=== PATIENT | male | born 1995 | race Hispanic/Latino ===

== ENCOUNTER 2020-05-26 19:34 | Inpatient (IN) | payer SELFPAY ==
[~2020-05-26 19:34] MED LIST: Dexamethasone 20 MG/5 ML VIAL ONE; Glycopyrrolate 0.2 MG/ML 5 ML SYRINGE ONE; Iopamidol-370 76% 500 ML 1 ML ONE; Ketorolac Tromethamine 30 MG/ML VIAL ONE; Lidocaine 1% PF 5 ML VIAL ONE; Ondansetron PF 4 MG/2 ML Vial ONE; PHENYLEPHRINE-NS 100 MCG/ML 10 ML SYRINGE ONE; PROPOFOL 200 MG/20 ML VIAL ONE; Rocuronium Bromide 10 MG/ML (10ML VIAL) ONE; ePHEDrine 50 MG/ML VIAL ONE
[2020-05-26] MEDS ORDERED: Ketamine 50 MG/ML (10ML VIAL) ONE (19:44)
[2020-05-26] MEDS ORDERED: metroNIDAZOLE 500 MG/100 ML BAG ONE (20:04)
[2020-05-26] MEDS ORDERED: Vancomycin 1 GM/200 ML BAG ONE (20:04)
[2020-05-26] MEDS ORDERED: Boostrix 0.5 ML (Tdap) VIAL ONE (20:04)
[2020-05-26 20:48] LABS: Lactic Acid 3.3 mmol/L (0.5-2.2)
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
[2020-05-26] MEDS ORDERED: HYDROmorphone 0.5 MG/0.5 ML SYRINGE ONE ×2 (20:49→21:03)
[2020-05-26 20:53] LABS: ALT (SGPT) 919 U/L (8-55); AST (SGOT) 801 U/L (5-34); Albumin 3.7 g/dL (3.5-5.0); Alcohol Less than 10 mg/dL (Less than 10); Alkaline Phosphatase 75 U/L (40-110); Anion Gap 15 mmol/L (10-20); BUN (Urea Nitrogen) 14 mg/dL (8.9-20.6); Bilirubin, Total 0.8 mg/dL (0.2-1.2); Calc. Creatinine Clearance 0 mL/min (70-130); Calcium 7.7 mg/dL (7.8-10.44); Carbon Dioxide 23 mmol/L (22-29); Chloride 105 mmol/L (98-107); Globulin 2.3 g/dL (2.4-3.5); Glucose 133 mg/dL (70-105); Magnesium 1.9 mg/dL (1.6-2.6); Phosphorus 2.9 mg/dL (2.3-4.7); Potassium 4.4 mmol/L (3.5-5.1); Sodium 139 mmol/L (136-145)
[2020-05-26 20:54] LABS: INR-International Normal Ratio 1.2; Prothrombin Time 15.3 sec (12.0-14.7)
[2020-05-26 20:55] LABS: Acetaminophen Less than 6.0 mcg/mL (10.0-30.0); Alcohol Less than 10 mg/dL (Less than 10); Salicylate Less than 8.0 mg/dL (15.0-30.0)
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
[2020-05-26] MEDS ORDERED: Sodium Phosphate 15 MMOL in Sodium Chloride 0.9% 250 ML 250 ML IVPB SCH (21:00)
[2020-05-26] MEDS ORDERED: Magnesium 2 GM/50 ML 2 GM in Premix Bag 1 BAG IVPB SCH (21:00)
[2020-05-26] MEDS ORDERED: Fentanyl 100 MCG/2 ML VIAL ONE (21:03)
[2020-05-26 21:21] LABS: Band 15 % (5-11); Hemoglobin 13.9 g/dL (14.0-18.0); Lymphocytes 20 % (21-51); MDiff Complete? YES; Mean Corpuscular HGB CONC 34.9 g/dL (32.0-36.0); Mean Corpuscular Hemoglobin 30.5 pg (27.0-31.0); Mean Corpuscular Volume 87.4 fL (78.0-98.0); Mean Platelet Volume 6.9 fL (7.4-10.4); Monocytes 2 % (0-10); Neutrophil 63 % (42-75); Platelet Count 267 thou/uL (130-400); RBC Distribution Width 11.2 % (11.5-14.5); Red Blood Cell (RBC) Count 4.55 mill/uL (4.70-6.10)
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
[2020-05-26] MEDS ORDERED: hydrALAZINE 20 MG/ML VIAL SLOW IVP PRN (21:44)
[2020-05-26] MEDS ORDERED: Ondansetron PF 4 MG/2 ML Vial IVP PRN (21:44)
[2020-05-26] MEDS ORDERED: Morphine 4 MG/ML VIAL SLOW IVP PRN (21:44)
[2020-05-26] MEDS ORDERED: Dextrose 5% in Water 1,000 ML IV PRN (21:44)
[2020-05-26] MEDS ORDERED: Dextrose 50% Abboject 50 ML SYRINGE SLOW IVP PRN (21:44)
[2020-05-26] MEDS ORDERED: Ondansetron ODT 4 MG TAB PO PRN (21:44)
[2020-05-26] MEDS ORDERED: Morphine 2 MG/ML VIAL SLOW IVP PRN (21:44)
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
[2020-05-26] MEDS ORDERED: Sodium Chloride 0.9% 1,000 ML IV SCH (22:00)
[2020-05-26 22:28] LABS: SARS-CoV-2 NAA Rapid Test Not Detected (NotDetected)
[2020-05-26] MEDS ORDERED: Communication Order-Pharmacy FS SCH (23:45)
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
--- NOTE | 2020-05-27 00:10 | RAD ---
Exam: XR Ankle Rt 2 View HISTORY: Incision and drainage right ankle COMPARISON: 05/26/2020 FINDINGS/IMPRESSION: 2 intraoperative fluoroscopic images of the right ankle are submitted for interpretation. There is im proved alignment at the tibiotalar joint on provided fluoroscopic images. Radiopaque densities adjacent to the lateral malleolus are not visualized and may be related to recent postoperative harvey e or removal of overlying artifact. Subcutaneous emphysema is seen about right ankle. Correlation with intraoperative findings is recommended. Fluoroscopy: Time-24.9 seconds Dose 0.86 mGy.
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
[2020-05-27] MEDS: cefTRIAXone\\ROCEPHIN 2 GM in Sodium Chloride 0.9% 100 ML IVPB SCH (00:50)
[2020-05-27 01:07] LABS: Bacteria/HPF None Seen HPF (None Seen); Bilirubin Negative (Negative); Blood, Urine 3+ (Negative); Clarity Clear (Clear); Glucose, Urine (Dipstick) 30 mg/dL (Negative); Ketone, Urine Negative (Negative); Leukocyte Negative Leu/uL (Negative); Nitrite Negative (Negative); Protein, Urine (Dipstick) 100 mg/dL (Neg-Trace); RBC/HPF Greater than 50 HPF (0-3); Specific Gravity, Urine 1.042 (1.002-1.036); Squamous Epithelial 0-3 HPF (0-3); Urobilinogen Normal mg/dL (Less than 2)
[2020-05-27 01:09] LABS: Urine Culture Reflex Yes Yes
[2020-05-27 01:10] LABS: Amphetamine Not Detected (NotDetected); Barbiturates Screen Not Detected (NotDetected); Benzodiazepine Screen Not Detected (NotDetected); Cocaine Metabolite Screen Not Detected (NotDetected); Medtox Control Line Valid? VALID (VALID); Medtox Reader # READER 4; Methadone Not Detected (NotDetected); Methamphetamine Not Detected (NotDetected); Opiate Screen Not Detected (NotDetected); Oxycodone Screen Not Detected (NotDetected); Phencyclidine (PCP) Not Detected (NotDetected); THC/Cannabinoid Screen Not Detected (NotDetected); Tricyclic Screen Not Detected (NotDetected)
[2020-05-27 02:23] VITALS: BMI 32.0
[2020-05-27 02:53] LABS: ALT (SGPT) 1274 U/L (8-55); AST (SGOT) 1207 U/L (5-34); Albumin 3.5 g/dL (3.5-5.0); Alkaline Phosphatase 73 U/L (40-110); Anion Gap 16 mmol/L (10-20); BUN (Urea Nitrogen) 15 mg/dL (8.9-20.6); Bilirubin, Total 0.6 mg/dL (0.2-1.2); Calc. Creatinine Clearance 143 mL/min (70-130); Calcium 7.7 mg/dL (7.8-10.44); Carbon Dioxide 20 mmol/L (22-29); Chloride 107 mmol/L (98-107); Globulin 2.2 g/dL (2.4-3.5); Glucose 140 mg/dL (70-105); Lactic Acid 5.3 mmol/L (0.5-2.2); Protein, Total 5.7 g/dL (6.0-8.3); Sodium 139 mmol/L (136-145)
[2020-05-27 03:07] LABS: CK (CPK) 4379 U/L (30-200)
[2020-05-27 03:19] LABS: Band 24 % (5-11); Hemoglobin 12.8 g/dL (14.0-18.0); Lymphocytes 7 % (21-51); MDiff Complete? YES; Mean Corpuscular HGB CONC 35.7 g/dL (32.0-36.0); Mean Corpuscular Hemoglobin 31.5 pg (27.0-31.0); Mean Corpuscular Volume 88.3 fL (78.0-98.0); Mean Platelet Volume 4.3 fL (7.4-10.4); Monocytes 2 % (0-10); Neutrophil 67 % (42-75); Platelet Count 175 thou/uL (130-400); Platelet Morphology Comment Appears Adequate; RBC Distribution Width 11.4 % (11.5-14.5); Red Blood Cell (RBC) Count 4.05 mill/uL (4.70-6.10); White Blood Cell (WBC) Count 21.4 thou/uL (4.8-10.8)
[2020-05-27] MEDS ORDERED: Sodium Chloride 0.9% 1,000 ML IV SCH (03:45)
[2020-05-27] MEDS ORDERED: metroNIDAZOLE 500 MG in Premix Bag 1 BAG IVPB SCH (04:00)
[2020-05-27] MEDS: metroNIDAZOLE 500 MG in Premix Bag 1 BAG IVPB SCH ×3 (06:13→21:10)
[2020-05-27 06:58] LABS: Magnesium 2.2 mg/dL (1.6-2.6); Phosphorus 2.4 mg/dL (2.3-4.7)
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
[2020-05-27] MEDS ORDERED: FLU VACC QS2020-21(6MOS UP)/PF 60 MCG/0.5 ML SYRINGE IM ONE (09:00)
--- NOTE | 2020-05-27 09:14 | PRG ---
DATE OF SERVICE: 05/27/2020 SUBJECTIVE: No events overnight. Mr. Bernal is awake, alert, and talking. He has complaints of extremity pain. No nausea or vomiting. Dr. Gentile has recommended CT scans of the ankle and wrist. OBJECTIVE: VITAL SIGNS: His blood pressure is 120/60, heart rate is 111, temperature 100.6. Urine output 875. CHEST: Clear. HEART: Increased rate, regular rhythm without murmurs. ABDOMEN: Soft. Tender in the upper abdomen without guarding or rebound. EXTREMITIES: Dressed. LABORATORY DATA: White blood cell count is 20, hemoglobin is 12, and platelet count is 175. Sodium 139, potassium 4.0, and creatinine 1.24. Elevation of AST and ALT to 1207 and 1274. Creatine kinase 4379. ASSESSMENT: 1. Liver injury, grade 4, but hemodynamically stable. Stable hemoglobin. 2. Multiple orthopedic injuries. CT scans today, likely definitive repair in the next few days by Dr. Gentile. PLAN: He is probably stable to be moved out of the ICU. He can likely have his C-spine cleared later on today. Job ID: [id number]
[2020-05-27] MEDS: Sodium Chloride 0.9% 1,000 ML IV SCH ×4 (10:02→16:53)
[2020-05-27] MEDS: Famotidine/PF 20 mg/2ml Vial SLOW IVP SCH ×2 (10:02→20:53)
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
[2020-05-27 10:12] LABS: Hemoglobin 11.3 g/dL (14.0-18.0); Mean Corpuscular HGB CONC 35.7 g/dL (32.0-36.0); Mean Corpuscular Volume 86.8 fL (78.0-98.0); Mean Platelet Volume 6.7 fL (7.4-10.4); Platelet Count 172 thou/uL (130-400); RBC Distribution Width 11.3 % (11.5-14.5); Red Blood Cell (RBC) Count 3.64 mill/uL (4.70-6.10); White Blood Cell (WBC) Count 15.3 thou/uL (4.8-10.8)
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
[2020-05-27 10:32] LABS: Band 25 % (5-11); Lymphocytes 6 % (21-51); MDiff Complete? YES; Monocytes 3 % (0-10); Neutrophil 66 % (42-75)
[2020-05-27 14:35] LABS: Lactic Acid 2.6 mmol/L (0.5-2.2)
[2020-05-27 14:41] LABS: ALT (SGPT) 1511 U/L (8-55); AST (SGOT) 1279 U/L (5-34); Alkaline Phosphatase 54 U/L (40-110); Anion Gap 11 mmol/L (10-20); BUN (Urea Nitrogen) 15 mg/dL (8.9-20.6); Bilirubin, Total 0.6 mg/dL (0.2-1.2); Calc. Creatinine Clearance 181 mL/min (70-130); Calcium 7.5 mg/dL (7.8-10.44); Carbon Dioxide 19 mmol/L (22-29); Chloride 109 mmol/L (98-107); Globulin 1.9 g/dL (2.4-3.5); Glucose 123 mg/dL (70-105); Magnesium 1.9 mg/dL (1.6-2.6); Phosphorus 2.7 mg/dL (2.3-4.7); Potassium 4.1 mmol/L (3.5-5.1); Protein, Total 4.9 g/dL (6.0-8.3); Sodium 135 mmol/L (136-145)
[2020-05-27 14:48] LABS: Band 40 % (5-11); Hemoglobin 10.4 g/dL (14.0-18.0); Lymphocytes 2 % (21-51); MDiff Complete? YES; Mean Corpuscular HGB CONC 35.5 g/dL (32.0-36.0); Mean Corpuscular Hemoglobin 31.4 pg (27.0-31.0); Mean Corpuscular Volume 88.3 fL (78.0-98.0); Mean Platelet Volume 6.6 fL (7.4-10.4); Monocytes 5 % (0-10); Neutrophil 51 % (42-75); Platelet Count 157 thou/uL (130-400); Platelet Morphology Comment Appears Adequate; Polychromasia SLIGHT = 2-3 cells (100X) (0-2/hpf); RBC Distribution Width 11.3 % (11.5-14.5); Reactive Lymphocytes 1 % (0-10); Red Blood Cell (RBC) Count 3.32 mill/uL (4.70-6.10); White Blood Cell (WBC) Count 13.1 thou/uL (4.8-10.8)
[2020-05-27] MEDS ORDERED: Cyclobenzaprine 10 MG TAB PO PRN (16:05)
[2020-05-27] MEDS ORDERED: Sodium Phosphate 30 MMOL in Sodium Chloride 0.9% 250 ML 250 ML IVPB ONE (16:15)
[2020-05-27] MEDS: traMADol HCl 50 MG TAB PO SCH ×2 (18:32→23:03)
[2020-05-27] MEDS ORDERED: Morphine 4 MG/ML VIAL SLOW IVP PRN (19:53)
[2020-05-27 20:50] LABS: Band 19 % (5-11); Eosinophils 3 % (0-10); Hemoglobin 9.6 g/dL (14.0-18.0); Lymphocytes 7 % (21-51); MDiff Complete? YES; Mean Corpuscular Hemoglobin 30.6 pg (27.0-31.0); Mean Corpuscular Volume 87.5 fL (78.0-98.0); Monocytes 2 % (0-10); Neutrophil 69 % (42-75); Platelet Count 141 thou/uL (130-400); RBC Distribution Width 11.3 % (11.5-14.5); Red Blood Cell (RBC) Count 3.14 mill/uL (4.70-6.10); Toxic Granulation SLIGHT; White Blood Cell (WBC) Count 10.8 thou/uL (4.8-10.8)
[2020-05-27] MEDS: Senokot S 8.6-50 MG TAB PO SCH (20:53)
[2020-05-27] MEDS: Gabapentin 300 MG CAP PO SCH (20:53)
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
[2020-05-27] MEDS ORDERED: Magnesium 2 GM/50 ML 2 GM in Premix Bag 1 BAG IVPB SCH (21:15)
[2020-05-28] MEDS: cefTRIAXone\\ROCEPHIN 2 GM in Sodium Chloride 0.9% 100 ML IVPB SCH (01:01)
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
[2020-05-28] MEDS: Sodium Chloride 0.9% 1,000 ML IV SCH ×2 (02:28→05:52)
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
[2020-05-28 05:44] LABS: Hemoglobin 8.5 g/dL (14.0-18.0); Mean Corpuscular HGB CONC 34.5 g/dL (32.0-36.0); Mean Corpuscular Hemoglobin 30.3 pg (27.0-31.0); RBC Distribution Width 11.5 % (11.5-14.5); White Blood Cell (WBC) Count 8.5 thou/uL (4.8-10.8)
[2020-05-28 05:45] LABS: Lactic Acid 1.4 mmol/L (0.5-2.2)
[2020-05-28] MEDS: traMADol HCl 50 MG TAB PO SCH ×3 (05:47→18:41)
[2020-05-28] MEDS: metroNIDAZOLE 500 MG in Premix Bag 1 BAG IVPB SCH ×3 (05:47→22:28)
[2020-05-28 05:52] LABS: ALT (SGPT) 1381 U/L (8-55); AST (SGOT) 922 U/L (5-34); Albumin 2.7 g/dL (3.5-5.0); Alkaline Phosphatase 58 U/L (40-110); Anion Gap 9 mmol/L (10-20); BUN (Urea Nitrogen) 12 mg/dL (8.9-20.6); Bilirubin, Total 0.6 mg/dL (0.2-1.2); CK (CPK) 3602 U/L (30-200); Calc. Creatinine Clearance 214 mL/min (70-130); Calcium 7.3 mg/dL (7.8-10.44); Carbon Dioxide 24 mmol/L (22-29); Chloride 109 mmol/L (98-107); Globulin 1.8 g/dL (2.4-3.5); Glucose 117 mg/dL (70-105); Magnesium 2.2 mg/dL (1.6-2.6); Phosphorus 2.8 mg/dL (2.3-4.7); Potassium 3.8 mmol/L (3.5-5.1); Protein, Total 4.5 g/dL (6.0-8.3); Sodium 138 mmol/L (136-145)
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
[2020-05-28 06:43] LABS: #Monocytes 0.6 thou/uL (0.11-0.59); #Neutrophils 6.8 thou/uL (1.40-6.50); %Basophils 0.1 % (0.0-1.0); %Eosinophils 0.1 % (0.0-10.0); %Lymphocytes 11.9 % (21.0-51.0); %Monocytes 7.5 % (0.0-10.0); %Neutrophils 80.3 % (42.0-75.0); Mean Platelet Volume 6.5 fL (7.4-10.4); Platelet Count 119 thou/uL (130-400); Platelet Morphology Comment Appears Decreased
[2020-05-28] MEDS ORDERED: Potassium Phosphate 15 MMOL in Sodium Chloride 0.9% 250 ML 250 ML IVPB SCH (07:30)
[2020-05-28] MEDS ORDERED: HYDROmorphone 0.5 MG/0.5 ML SYRINGE ONE (07:32)
[2020-05-28] MEDS ORDERED: Fentanyl 100 MCG/2 ML VIAL ONE (07:32)
[2020-05-28] MEDS ORDERED: Lidocaine 2% PF 5 ML VIAL ONE (07:51)
[2020-05-28] MEDS ORDERED: Bupivacaine PF 0.5% 30 ML VIAL ONE ×2 (07:51)
[2020-05-28] MEDS ORDERED: Sodium Chloride 0.9% 10 ML ONE (08:16)
[2020-05-28] MEDS: Lactated Ringer's 1,000 ML IV SCH ×3 (08:32→22:28)
[2020-05-28] MEDS: Gabapentin 300 MG CAP PO SCH ×3 (08:32→19:55)
[2020-05-28] MEDS: Famotidine/PF 20 mg/2ml Vial SLOW IVP SCH ×2 (08:32→19:54)
[2020-05-28] MEDS: Polyethylene Glycol 3350 17 GM Packet PO SCH (08:32)
[2020-05-28] MEDS: Senokot S 8.6-50 MG TAB PO SCH ×2 (08:32→19:54)
[2020-05-28] MEDS ORDERED: HYDROmorphone 2 MG/ML VIAL SLOW IVP PRN (08:59)
[2020-05-28] MEDS ORDERED: Promethazine HCl 25 MG/ML VIAL SLOW IVP PRN (08:59)
[2020-05-28] MEDS ORDERED: PACU-Morphine 4MG/ML VIAL SLOW IVP PRN (08:59)
[2020-05-28] MEDS ORDERED: Promethazine HCl 25 MG/ML VIAL IM PRN (08:59)
[2020-05-28] MEDS ORDERED: Ondansetron HCl/PF 4 MG/2 ML Vial IVP PRN (08:59)
[2020-05-28] MEDS ORDERED: Ketorolac Tromethamine 30 MG/ML VIAL ONE (12:52)
[2020-05-28] MEDS ORDERED: Rocuronium Bromide 10 MG/ML (10ML VIAL) ONE (12:52)
[2020-05-28] MEDS ORDERED: Dexamethasone 20 MG/5 ML VIAL ONE (12:52)
[2020-05-28] MEDS ORDERED: Lidocaine 1% PF 5 ML VIAL ONE (12:52)
[2020-05-28] MEDS ORDERED: Ondansetron PF 4 MG/2 ML Vial ONE (12:52)
[2020-05-28] MEDS ORDERED: PROPOFOL 200 MG/20 ML VIAL ONE (12:52)
--- NOTE | 2020-05-28 13:19 | RAD ---
Exam: Right wrist 2 views: HISTORY: ORIF right wrist fracture COMPARISON: None FINDINGS: Metal plate and screws stabilize comminuted distal radial fracture with an elongated metal plate exte nding to the mid diaphysis. IMPRESSION: Status post ORIF distal radius without significant malalignment.
[2020-05-28] MEDS ORDERED: SUGAMMADEX SODIUM 200 MG/2 ML VIAL ONE (13:24)
[2020-05-28] MEDS ORDERED: SUGAMMADEX SODIUM 500 MG/5 ML VIAL ONE (13:24)
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
[2020-05-29] MEDS: traMADol HCl 50 MG TAB PO SCH ×4 (00:13→18:08)
[2020-05-29] MEDS: cefTRIAXone\\ROCEPHIN 2 GM in Sodium Chloride 0.9% 100 ML IVPB SCH (00:14)
[2020-05-29] MEDS: metroNIDAZOLE 500 MG in Premix Bag 1 BAG IVPB SCH ×3 (05:12→21:40)
[2020-05-29] MEDS: Lactated Ringer's 1,000 ML IV SCH ×3 (05:13→18:06)
[2020-05-29 06:03] LABS: #Lymphocytes 0.8 thou/uL (1.20-3.40); #Monocytes 0.7 thou/uL (0.11-0.59); #Neutrophils 9.2 thou/uL (1.40-6.50); %Basophils 0.3 % (0.0-1.0); %Eosinophils 0.1 % (0.0-10.0); %Lymphocytes 7.3 % (21.0-51.0); %Monocytes 6.1 % (0.0-10.0); %Neutrophils 86.2 % (42.0-75.0); Mean Corpuscular HGB CONC 34.5 g/dL (32.0-36.0); Mean Corpuscular Hemoglobin 30.2 pg (27.0-31.0); Mean Corpuscular Volume 87.7 fL (78.0-98.0); Mean Platelet Volume 6.5 fL (7.4-10.4); Platelet Count 125 thou/uL (130-400); RBC Distribution Width 11.2 % (11.5-14.5); Red Blood Cell (RBC) Count 2.63 mill/uL (4.70-6.10); White Blood Cell (WBC) Count 10.7 thou/uL (4.8-10.8)
[2020-05-29 06:26] LABS: Anion Gap 9 mmol/L (10-20); BUN (Urea Nitrogen) 8 mg/dL (8.9-20.6); CK (CPK) 3585 U/L (30-200); Calc. Creatinine Clearance 227 mL/min (70-130); Calcium 7.6 mg/dL (7.8-10.44); Carbon Dioxide 27 mmol/L (22-29); Chloride 105 mmol/L (98-107); Glucose 116 mg/dL (70-105); Magnesium 1.9 mg/dL (1.6-2.6); Potassium 4.2 mmol/L (3.5-5.1); Sodium 137 mmol/L (136-145)
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
[2020-05-29] MEDS: Polyethylene Glycol 3350 17 GM Packet PO SCH (08:38)
[2020-05-29] MEDS: Senokot S 8.6-50 MG TAB PO SCH ×2 (08:39→20:18)
[2020-05-29] MEDS: Ascorbic Acid 500 mg Chewable Tablet PO SCH ×2 (08:39→20:18)
[2020-05-29] MEDS: Ferrous Sulfate 325 MG TAB PO SCH ×2 (08:39→18:08)
[2020-05-29] MEDS: Famotidine/PF 20 mg/2ml Vial SLOW IVP SCH ×2 (08:39→20:18)
[2020-05-29] MEDS: Gabapentin 300 MG CAP PO SCH ×3 (08:39→20:17)
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
[2020-05-30] MEDS: traMADol HCl 50 MG TAB PO SCH ×4 (00:19→18:17)
[2020-05-30] MEDS: cefTRIAXone\\ROCEPHIN 2 GM in Sodium Chloride 0.9% 100 ML IVPB SCH (00:20)
[2020-05-30] MEDS: Lactated Ringer's 1,000 ML IV SCH ×2 (00:20→05:12)
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
[2020-05-30] MEDS: metroNIDAZOLE 500 MG in Premix Bag 1 BAG IVPB SCH ×2 (05:07→13:02)
[2020-05-30 05:46] LABS: #Lymphocytes 1.3 thou/uL (1.20-3.40); #Monocytes 0.5 thou/uL (0.11-0.59); #Neutrophils 5.3 thou/uL (1.40-6.50); %Basophils 0.3 % (0.0-1.0); %Eosinophils 0.6 % (0.0-10.0); %Lymphocytes 18.6 % (21.0-51.0); %Monocytes 6.6 % (0.0-10.0); %Neutrophils 73.9 % (42.0-75.0); Mean Corpuscular HGB CONC 34.9 g/dL (32.0-36.0); Mean Corpuscular Hemoglobin 30.9 pg (27.0-31.0); Mean Corpuscular Volume 88.4 fL (78.0-98.0); Mean Platelet Volume 6.5 fL (7.4-10.4); Platelet Count 133 thou/uL (130-400); RBC Distribution Width 11.2 % (11.5-14.5); White Blood Cell (WBC) Count 7.2 thou/uL (4.8-10.8)
[2020-05-30 06:09] LABS: Anion Gap 10 mmol/L (10-20); BUN (Urea Nitrogen) 8 mg/dL (8.9-20.6); CK (CPK) 2983 U/L (30-200); Calc. Creatinine Clearance 239 mL/min (70-130); Calcium 7.7 mg/dL (7.8-10.44); Carbon Dioxide 27 mmol/L (22-29); Chloride 103 mmol/L (98-107); Glucose 89 mg/dL (70-105); Magnesium 1.8 mg/dL (1.6-2.6); Potassium 4.3 mmol/L (3.5-5.1); Sodium 136 mmol/L (136-145)
[2020-05-30] MEDS ORDERED: Enoxaparin Sodium 40 MG/0.4 ML SYRINGE SC SCH (09:00)
[2020-05-30] MEDS: Polyethylene Glycol 3350 17 GM Packet PO SCH (09:01)
[2020-05-30] MEDS: Senokot S 8.6-50 MG TAB PO SCH ×2 (09:01→20:38)
[2020-05-30] MEDS: Enoxaparin Sodium 30 MG/0.3 ML SYRINGE SC SCH ×2 (09:01→20:38)
[2020-05-30] MEDS: Gabapentin 300 MG CAP PO SCH ×3 (09:02→20:37)
[2020-05-30] MEDS: Ferrous Sulfate 325 MG TAB PO SCH ×3 (09:02→20:38)
[2020-05-30] MEDS: Ascorbic Acid 500 mg Chewable Tablet PO SCH ×2 (09:02→20:38)
[2020-05-30] MEDS: Furosemide 20 MG/2 ML VIAL SLOW IVP SCH ×2 (09:29→16:08)
[2020-05-30] MEDS ORDERED: Fleet Enema 133 ML BOT FS PRN (13:07)
[2020-05-30] MEDS ORDERED: Bisacodyl 10 MG SUPP PR PRN (13:07)
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
[2020-05-31] MEDS: Furosemide 20 MG/2 ML VIAL SLOW IVP SCH (00:21)
[2020-05-31] MEDS: traMADol HCl 50 MG TAB PO SCH ×5 (00:21→23:21)
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
[2020-05-31 06:10] LABS: Hemoglobin 9.3 g/dL (14.0-18.0); Mean Corpuscular HGB CONC 35.2 g/dL (32.0-36.0); Mean Corpuscular Volume 88.1 fL (78.0-98.0); Mean Platelet Volume 6.4 fL (7.4-10.4); Platelet Count 169 thou/uL (130-400); RBC Distribution Width 11.4 % (11.5-14.5); White Blood Cell (WBC) Count 6.9 thou/uL (4.8-10.8)
[2020-05-31 06:52] LABS: Anion Gap 13 mmol/L (10-20); BUN (Urea Nitrogen) 10 mg/dL (8.9-20.6); CK (CPK) 2754 U/L (30-200); Calc. Creatinine Clearance 224 mL/min (70-130); Calcium 8.3 mg/dL (7.8-10.44); Carbon Dioxide 32 mmol/L (22-29); Chloride 95 mmol/L (98-107); Glucose 93 mg/dL (70-105); Magnesium 1.7 mg/dL (1.6-2.6); Phosphorus 3.9 mg/dL (2.3-4.7); Potassium 3.6 mmol/L (3.5-5.1); Sodium 136 mmol/L (136-145)
[2020-05-31] MEDS: Enoxaparin Sodium 30 MG/0.3 ML SYRINGE SC SCH ×2 (09:50→20:11)
[2020-05-31] MEDS: Gabapentin 300 MG CAP PO SCH ×3 (09:50→20:11)
[2020-05-31] MEDS: Senokot S 8.6-50 MG TAB PO SCH ×2 (09:50→20:11)
[2020-05-31] MEDS: Ascorbic Acid 500 mg Chewable Tablet PO SCH ×2 (09:51→20:11)
[2020-05-31] MEDS: Ferrous Sulfate 325 MG TAB PO SCH ×2 (09:52→20:11)
[2020-05-31] MEDS: Polyethylene Glycol 3350 17 GM Packet PO SCH (09:55)
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
[2020-06-01 04:12] LABS: SARS-CoV-2 MS2 Positive; SARS-CoV-2 N Gene Negative; SARS-CoV-2 S Gene Negative; SARS-CoV-2 by NAA Not Detected (NotDetected); SARS-CoV-2 orf1ab Negative
[2020-06-01] MEDS: traMADol HCl 50 MG TAB PO SCH ×3 (05:44→18:14)
[2020-06-01] MEDS: Ferrous Sulfate 325 MG TAB PO SCH (09:50)
[2020-06-01] MEDS: Ascorbic Acid 500 mg Chewable Tablet PO SCH (09:50)
[2020-06-01] MEDS: Enoxaparin Sodium 30 MG/0.3 ML SYRINGE SC SCH (09:50)
[2020-06-01] MEDS: Gabapentin 300 MG CAP PO SCH ×2 (09:50→17:13)
[2020-06-01] MEDS: Polyethylene Glycol 3350 17 GM Packet PO SCH (11:13)
[2020-06-01] MEDS: Senokot S 8.6-50 MG TAB PO SCH (11:14)
--- NOTE | 2020-06-01 12:00 | PRG ---
DATE OF SERVICE: 06/01/2020 SUBJECTIVE: Joel is a 25-year-old male, postop day 5 from irrigation and debridement of a right open ankle dislocation and an open reduction and internal fixation of left distal radius. Joel is doing relatively well. He is planning on going home today. OBJECTIVE: I removed his splint and dressing today as well as wound VACs and his incision looks very nice and clean. No bleeding or drainage. His puncture wound is also clean, but I can see tendons. PLAN: I will place a wound VAC on the puncture wound posteriorly and just a dry dressing on the incision and place him in a walking boot for easy access to both. Wound VAC will be removed in 7 days. Follow up with Dr. Gentile at that time. Job ID: [id number]
[2020-06-01 15:59] VITALS: BP 126/82; TEMP 99.2
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
== END 2020-06-01 19:00 | disposition home or self-care (01) | DRG 958 ==
LOC: ERS 19:34 → SDC/OP 21:32 → CCU 21:44 → SURG A 05-27 18:02
PROVIDERS: ADMIT Surgery; ATTEND Surgery
PROC: 0QDM0ZZ Extraction of Left Tarsal, Open Approach (ICD-10-PCS; principal; 2020-05-26)
PROC: 0SSFXZZ Reposition Right Ankle Joint, External Approach (ICD-10-PCS; 2020-05-26)
PROC: 0SSFXZZ Reposition Right Ankle Joint, External Approach (ICD-10-PCS; 2020-05-26)
PROC: 0PSJXZZ Reposition Left Radius, External Approach (ICD-10-PCS; 2020-05-26)
PROC: 0PSJ04Z Reposition Left Radius with Internal Fixation Device, Open Approach (ICD-10-PCS; 2020-05-28)
PROC: 0MQQ0ZZ Repair Right Ankle Bursa and Ligament, Open Approach (ICD-10-PCS; 2020-05-28)
DX: S52.572B Other intraarticular fracture of lower end of left radius, initial encounter for open fracture type I or II (principal); S27.322A Contusion of lung, bilateral, initial encounter; S32.019A Unspecified fracture of first lumbar vertebra, initial encounter for closed fracture; S36.113A Laceration of liver, unspecified degree, initial encounter; S32.029A Unspecified fracture of second lumbar vertebra, initial encounter for closed fracture; S22.41XA Multiple fractures of ribs, right side, initial encounter for closed fracture; E27.49 Other adrenocortical insufficiency; N17.9 Acute kidney failure, unspecified; S27.0XXA Traumatic pneumothorax, initial encounter; E87.2 Acidosis; D62 Acute posthemorrhagic anemia; Z20.822 Contact with and (suspected) exposure to COVID-19; Z23 Encounter for immunization; S93.04XA Dislocation of right ankle joint, initial encounter; S52.614A Nondisplaced fracture of right ulna styloid process, initial encounter for closed fracture; T79.6XXA Traumatic ischemia of muscle, initial encounter; V29.9XXA Motorcycle rider (driver) (passenger) injured in unspecified traffic accident, initial encounter; S93.491A Sprain of other ligament of right ankle, initial encounter; E83.42 Hypomagnesemia; E83.39 Other disorders of phosphorus metabolism
CPT/HCPCS: 36415; 36416; 70450; 71045; 71260; 72125; 74177; 76000; 80048; 80053; 80306; 80307; 81001; 82550; 83605; 83735; 84100; 85007; 85025; 85027; 85610; 85730; 86850; 86900; 86901; 87086; 87635; 90471; 90662; 90715; 93005; 94640; C1713; G0008; G0390; J0690; J0696; J1100; J1170; J1650; J1885; J1940; J2001; J2405; J2704; J3010; J3370; J3475; J3490; J7050; J7620; Q9967; S0020; S0028; U0002; U0003